=== PATIENT | male | born 1955 | race Caucasian/White ===

== ENCOUNTER 2019-09-05 08:27 | Emergency (ER) | payer BC, SELFPAY ==
--- NOTE | 2019-09-05 08:28 | XRR_ITS ---
PROCEDURE INFORMATION: Exam: XR Abdomen, 2 Views Exam date and time: 09/05/2019 8:30 AM Age: 64 years old Clinical indication: Patient status: Conscious; Pain: Left flank pain. Urinary retention; Prior surgery; Surgery date: 6+ months; Surgery type: Appy; Patient HX: HX of kidney stones; Additional info: Renal stone TECHNIQUE: Imaging protocol: XR of the abdomen. Views: 2 Views. COMPARISON: No relevant prior studies available. FINDINGS: Gastrointestinal tract: Bowel gas pattern is nonspecific. No mass effect upon the bowel loops. Distal rectal gas. Scattered loops of air filled small bowel none of which are dilated. Intraperitoneal space: Normal. No free air. Bones/joints: No acute process within the osseous structures of the spine or pelvis. Prior hip arthroplasty on the right Soft tissues: No appreciable calcifications XR/XR KUB [id number] IMPRESSION: Bowel gas pattern is nonspecific.
[2019-09-05 08:32] VITALS: BP 177/98; PULSE 69; RESP 18; TEMP 36.2; O2SAT 98; BMI 28.3
--- NOTE | 2019-09-05 08:33 | ED_ITS ---
Documented by User: Humberto Raines DO 09/05/19 16:01 HPI - Abdominal Pain General: Chief Complaint: Urogenital-Male Stated Complaint: poss kidney stone Time Seen by Provider: 09/05/19 08:28 History of Present Illness: HPI narrative: 64-year-old male presents emergency room with unable to void. He is not had any hematuria recently. He is not had any flank pain. Around 11 PM last night he was able to void a moderate amount he woke up again at 2 AM states he voided a very small amount at that point and since 3 AM he is not been able to void at all he has increasing suprapubic pain mostly at the midline. He has had kidney stones in the past he is not behaving is a typical nephrolithiasis patient does at this point in terms of pain. MD elicited complaint: abdominal pain Pertinent past history: kidney stones Onset (ago): hour(s) (6) Pain Consistency: constant Location: Suprapubic and Pelvis Severity: moderate Quality: cramping Radiation: bilateral flank (Mild) and back Migration to: periumbilical Exacerbating factors: movement and other (Patient over the bladder) Relieving factors: rest Context: other (History of BPH) Associated Symptoms: Reports GI cramping; Denies chills, fever(s), hematochezia and hematuria Treatments prior to arrival: other (Tamsulosin ) Review of Systems Const: Denies: fever(s), chills, body aches, change in appetite, fatigue or malaise ENMT: Denies: throat pain, ear or mastoid pain, nasal discharge or nasal congestion Card: Denies: chest pain, edema, dyspnea on exertion or orthopnea Resp: Denies: dyspnea, productive cough or non-productive cough GI: Reports: GI cramping; Denies: hematochezia : Denies: hematuria Skin/Breast: Denies: rash or pruritus PFSH ED PFSH: Medical History (Updated 09/05/19 @ 11:47 by Rupinder Hwang) BPH (benign prostatic hyperplasia) Hypertension Nephrolithiasis Surgical History (Updated 09/05/19 @ 08:44 by Humberto Raines DO) History of appendectomy History of total right hip arthroplasty Physical Exam Const: COMMON NORMALS: no acute distress GENERAL APPEARANCE: cooperative and comfortable ORIENTATION/CONSCIOUSNESS: Yes awake, Yes oriented to person, Yes oriented to place and Yes oriented to time HENMT: COMMON NORMALS: normocephalic, atraumatic, hearing grossly normal bilaterally, external ears normal, EAC's normal, TM's normal bilaterally, Normal nasal mucous membranes and turbinates present, moist oral mucous membranes and oropharynx normal HEAD & SCALP: normocephalic and atraumatic NOSE: Normal nasal mucous membranes and turbinates present EXTERNAL EAR: Yes external ears normal EXTERNAL AUDITORY CANAL: EAC's normal TYMPANIC MEMBRANE: TM's normal bilaterally Eye: COMMON NORMALS: Equal, round and reactive pupils present, EOMs intact bilaterally, conjunctivae normal and no scleral icterus CONJUNCTIVA: Yes conjunctivae normal PUPIL: Yes Equal, round and reactive pupils present Neck/C-Spine: COMMON NORMALS: full ROM, no lymphadenopathy, supple and no JVD Lymph: LYMPHATIC: no lymphadenopathy noted and no lymphedema noted Resp: COMMON NORMALS: normal respiratory effort, No retractions, No use of accessory muscles and clear to auscultation bilaterally AUSCULTATION: clear to auscultation bilaterally Cardio: COMMON NORMALS: no JVD, regular rate, regular rhythm and No murmurs present (Cardio) RATE: regular rate RHYTHM: regular rhythm GI: COMMON NORMALS: Soft to palpation and No hepatosplenomegaly present AUSCULTATION: Yes normoactive bowel sounds PALPATION: Yes Soft to palpation, No Tenderness to palpation present (GI), No Guarding due to palpation present (GI), Yes No hepatosplenomegaly present and Yes Bladder palpation abnormal : COMMON NORMALS: Yes no CVA tenderness BLADDER/KIDNEY EXAM: Yes no CVA tenderness and Yes Bladder palpation abnormal Bladder abnormal details: tender and distended to the umbilicus Back/Pelvis: COMMON NORMALS: no CVA tenderness Extremity: COMMON NORMALS: normal to inspection, capillary refill normal, no clubbing, cyanosis or edema, no calf tenderness and no pedal edema Neuro: SENSORIUM/ORIENTATION: Yes oriented to person, Yes oriented to place and Yes oriented to time Skin: COMMON NORMALS: no rashes or lesions noted GENERAL SKIN EXAM: no rashes or lesions noted Course Vital Signs: Vital signs: Vital Signs Temperature 97.1 F L 09/05/19 08:32 Pulse Rate 70 09/05/19 12:04 Respiratory Rate 15 09/05/19 12:04 Blood Pressure 128/88 09/05/19 12:04 Pulse Oximetry 99 09/05/19 12:04 MDM - Abdominal Pain MDM Narrative: Medical decision making narrative: Care turned over to Dr. Hwang at change of shift. Please see his notes for final diagnosis and disposition. Lab Data: Labs: Lab Results 09/05/19 09/05/19 Range/Units 09:00 09:00 WBC 9.3 (4.0-10.0) 10^3/ uL RBC 5.51 H (4.1-5.3) 10^6/u L Hgb 15.5 (11.7-16.6) g/dL Hct 48.5 (42.0-52.0) % MCV 88.0 (80-94) fL MCH 28.1 (28.0-34.0) pg MCHC 32.0 (30.0-36.0) g/dL RDW 13.1 (12.1-15.1) % Plt Count 145 (130-400) 10^3/c mm MPV 13.0 H (7.4-10.4) fL Neut % (Auto) 83.8 % Lymph % (Auto) 9.5 % [place] % (Auto) 5.4 % Eos % (Auto) 0.1 % Baso % (Auto) 0.2 % Neut # (Auto) 7.8 H (1.8-7.7) 10^3/u L Lymph # (Auto) 0.9 (0.8-4.8) 10^3/u L [place] # (Auto) 0.5 (0.2-0.9) 10^3/u L Eos # (Auto) 0.0 (0.0-0.8) 10^3/u L Baso # (Auto) 0.0 (0.0-0.1) 10^3/u L Nucleated RBC % (a uto) 0 % Nucleated RBCs # 0.0 /100WBC Sodium 138 (136-145) mmol/L Potassium 4.0 (3.5-5.1) mmol/L Chloride 101 (98-107) mmol/L Carbon Dioxide 26 (22-29) mmol/L Anion Gap 15.0 (5-19) BUN 18 (8-23) mg/dL Creatinine 0.9 (0.7-1.2) mg/dL GFR Calculation 85.5 L (90-130) mL/min Glucose 129 H (65-115) mg/dL Calculated Osmolal ity 284 L (285-295) mOsm/k g Calcium 10.0 (8.5-10.5) mg/dL Total Bilirubin 0.4 (0.15-1.2) mg/dL AST 17 (0-40) U/L ALT 23 (0-41) U/L Alkaline Phosphata se 115 (40-130) IU/L Total Protein 7.9 (6.6-8.7) g/dL Albumin 4.9 (3.5-5.2) g/dL Globulin 3.0 (1.3-4.6) g/dL Discharge Plan Discharge Patient Disposition: Home, Self-Care Clinical Impression: Acute retention of urine Prostatitis Qualifiers: Prostatitis type: other Qualified Code(s): N41.8 - Other inflammatory diseases of prostate Condition: Stable Prescriptions: New Cipro 500 mg tablet 500 mg PO BID Qty: 20 RF: 0 No Action tamsulosin 0.4 mg capsule 0.4 mg PO DAILY RF: 0 lisinopril-hydrochlorothiazide 20-25 mg tablet 1 tab PO DAILY RF: 0 aspirin 81 mg Tablet,Chewable 81 mg PO DAILY RF: 0 Discharge Orders: Discharge Order (Routine); Ordered 09/05/19 Ordered By: Rupinder Hwang Referrals: Noe Chase MD [Physician] - 1-3 days Discharge Diet: Advance as tolerated Discharge Activity: Limit activity as instructed Patient Instructions: Prostatitis (ED), Urinary Retention in Men (ED) Activity Restrictions/Additional Instructions: Please return to the ER immediately for any of the signs or symptoms listed on your discharge instruction sheets, worsening/changing of your symptoms, you are not getting better as quickly as expected, or for ANY other cause or concerns. Keep your catheter in place until instructed further by Dr. Chase. Take your antibiotics as I have prescribed. Return to the ER for increased pain, your catheter stops draining, fever, vomiting, or for any other cause for concern. Discharge Date/Time: 09/05/19 12:07 Sign Out Sign Out Data: Patient Sign Out occurred on 09/05/19 at 09:14. Patient's care was discussed, and care was transferred from to Rupinder Hwang. Coding Level of Care Code ED Water Supply Engineer for Chg Fwd Exam Comprehensive Documented by User: Rupinder Hwang 09/05/19 11:48 HPI - Abdominal Pain General: Chief Complaint: Urogenital-Male Stated Complaint: poss kidney stone Time Seen by Provider: 09/05/19 08:28 PFSH ED PFSH: Medical History (Updated 09/05/19 @ 11:47 by Rupinder Hwang) BPH (benign prostatic hyperplasia) Hypertension Nephrolithiasis Surgical History (Updated 09/05/19 @ 08:44 by Humberto Raines, ) History of appendectomy History of total right hip arthroplasty Course Vital Signs: Vital signs: Vital Signs Temperature 97.1 F L 09/05/19 08:32 Pulse Rate 70 09/05/19 12:04 Respiratory Rate 15 09/05/19 12:04 Blood Pressure 128/88 09/05/19 12:04 Pulse Oximetry 99 09/05/19 12:04 MDM - Abdominal Pain MDM Narrative: Medical decision making narrative: Case inherited by me, Dr. Hwang from Dr. Raines at change of shift. Please see his notes for his history, physical exam and medical decision-making notes. KUB was unrevealing. CT of abdomen pelvis reveals no evidence of stones but bilateral hydroureters. Causes likely secondary to bladder outlet obstruction. Brito catheter was placed and 1300 cc of yellow-colored urine was obtained. Patient had almost immediate relief of all his discomfort. Patient be discharged home with a leg bag, placed on antibiotics for presumed prostatitis and he will continue his Flomax. Patient be referred to Dr. Chase and he understands he needs to do this and use the catheter until then. I reviewed with him at length the reasons for which to turn to the ER and he agrees to do so. He denied having any question or concerns and stated he understood all my discharge instructions. Lab Data: Attestation: I reviewed the patient's lab results. Labs: Lab Results 09/05/19 09/05/19 Range/Units 09:00 09:00 WBC 9.3 (4.0-10.0) 10^3/ uL RBC 5.51 H (4.1-5.3) 10^6/u L Hgb 15.5 (11.7-16.6) g/dL Hct 48.5 (42.0-52.0) % MCV 88.0 (80-94) fL MCH 28.1 (28.0-34.0) pg MCHC 32.0 (30.0-36.0) g/dL RDW 13.1 (12.1-15.1) % Plt Count 145 (130-400) 10^3/c mm MPV 13.0 H (7.4-10.4) fL Neut % (Auto) 83.8 % Lymph % (Auto) 9.5 % [place] % (Auto) 5.4 % Eos % (Auto) 0.1 % Baso % (Auto) 0.2 % Neut # (Auto) 7.8 H (1.8-7.7) 10^3/u L Lymph # (Auto) 0.9 (0.8-4.8) 10^3/u L [place] # (Auto) 0.5 (0.2-0.9) 10^3/u L Eos # (Auto) 0.0 (0.0-0.8) 10^3/u L Baso # (Auto) 0.0 (0.0-0.1) 10^3/u L Nucleated RBC % (a uto) 0 % Nucleated RBCs # 0.0 /100WBC Sodium 138 (136-145) mmol/L Potassium 4.0 (3.5-5.1) mmol/L Chloride 101 (98-107) mmol/L Carbon Dioxide 26 (22-29) mmol/L Anion Gap 15.0 (5-19) BUN 18 (8-23) mg/dL Creatinine 0.9 (0.7-1.2) mg/dL GFR Calculation 85.5 L (90-130) mL/min Glucose 129 H (65-115) mg/dL Calculated Osmolal ity 284 L (285-295) mOsm/k g Calcium 10.0 (8.5-10.5) mg/dL Total Bilirubin 0.4 (0.15-1.2) mg/dL AST 17 (0-40) U/L ALT 23 (0-41) U/L Alkaline Phosphata se 115 (40-130) IU/L Total Protein 7.9 (6.6-8.7) g/dL Albumin 4.9 (3.5-5.2) g/dL Globulin 3.0 (1.3-4.6) g/dL Imaging Data ^: CT Abd/Pel: Radiologist's impression: [address] [address] [address] Scan Report Signed Patient: Aries Ramos Unit #: [id number] : 1955 39 Age/Sex: 64 / M ADM Date: 09/05/19 Loc: ER Room/Bed: Attending Dr: Ordering Provider/Ordering MD: Rupinder Hwang DO Date of Service: 09/05/19 Procedure(s): CT kidney stone [id number] Accession Number(s): [id number] Report Number: [id number] PROCEDURE INFORMATION: Exam: CT Abdomen And Pelvis Without Contrast Exam date and time: 09/05/2019 9:43 AM Age: 64 years old Clinical indication: Abdominal pain; Flank; Left; Prior surgery; Surgery type: Appy; Additional info: Flank/abdominal pain TECHNIQUE: Imaging protocol: Computed tomography of the abdomen and pelvis without contrast. Radiation optimization: All CT scans at this facility use at least one of these dose optimization techniques: automated exposure control; mA and/or kV adjustment per patient size (includes targeted exams where dose is matched to clinical indication); or iterative reconstruction. COMPARISON: CR (ABDOMEN, ) 09/05/2019 9:25 AM RADIATION DOSE METRICS: Total DLP (mGy-cm): 1859.4 FINDINGS: Lungs: Mild fibrotic changes within the lung bases. Liver: Normal. No mass. Gallbladder and bile ducts: Numerous gallstones. Pancreas: Normal. No ductal dilation. Spleen: Normal. No splenomegaly. Adrenals: Normal. No mass. Kidneys and ureters: Hydronephrosis and hydroureter on the left to the level of the urinary bladder. No visualized calculus. Correlate regarding the possibility of a recently passed calculus. Mild hydronephrosis on the right also without a visualized calculus although to a lesser degree than the left. Possibly related to the distended bladder and severe prostatic enlargement. Stomach and bowel: Diverticulosis without evidence of diverticulitis. Moderate amount stool within the large bowel. Appendix: The appendix is not visualized. Intraperitoneal space: Unremarkable. No free air. No significant fluid collection. Vasculature: Unremarkable. No abdominal aortic aneurysm. Lymph nodes: Numerous lymph nodes within the mesentery with a pseudocapsule. Possible sclerosing mesenteritis. Bladder: Distended bladder. Reproductive: Severe prostatic enlargement. Correlate regarding hyperplasia/hypertrophy versus neoplasia. Bones/joints: Degenerative changes are present within the spine. Hip arthroplasty on the right. Soft tissues: Unremarkable. CT/CT kidney stone [id number] IMPRESSION: 1. Hydronephrosis and hydroureter on the left to the level of the urinary bladder. No visualized calculus. Correlate regarding the possibility of a recently passed calculus. Mild hydronephrosis on the right also without a visualized calculus although to a lesser degree than the left. Possibly related to the distended bladder and severe prostatic enlargement. Correlate. 2. Distended bladder. 3. Severe prostatic enlargement. Correlate regarding hyperplasia/hypertrophy versus neoplasia. Impression. 4. Numerous gallstones. 5. Hip arthroplasty on the right. 6. Diverticulosis without evidence of diverticulitis. Radiation Dose CTDIVOL = (mGy): DLP = 1859.4 (mGy-cm) Dictated By: Franklin Baker MD Signed By: Franklin Baker MD Signed Date/Time: 09/05/19 105 DD/ 1050 Discharge Plan Discharge Patient Disposition: Home, Self-Care Clinical Impression: Acute retention of urine Prostatitis Qualifiers: Prostatitis type: other Qualified Code(s): N41.8 - Other inflammatory diseases of prostate Condition: Stable Prescriptions: New Cipro 500 mg tablet 500 mg PO BID Qty: 20 RF: 0 No Action tamsulosin 0.4 mg capsule 0.4 mg PO DAILY RF: 0 lisinopril-hydrochlorothiazide 20-25 mg tablet 1 tab PO DAILY RF: 0 aspirin 81 mg Tablet,Chewable 81 mg PO DAILY RF: 0 Discharge Orders: Discharge Order (Routine); Ordered 09/05/19 Ordered By: Rupinder Hwang Referrals: Noe Chase MD [Physician] - 1-3 days Discharge Diet: Advance as tolerated Discharge Activity: Limit activity as instructed Patient Instructions: Prostatitis (ED), Urinary Retention in Men (ED) Activity Restrictions/Additional Instructions: Please return to the ER immediately for any of the signs or symptoms listed on y our discharge instruction sheets, worsening/changing of your symptoms, you are not getting better as quickly as expected, or for ANY other cause or concerns. Keep your catheter in place until instructed further by Dr. Chase. Take your antibiotics as I have prescribed. Return to the ER for increased pain, your catheter stops draining, fever, vomiting, or for any other cause for concern. Discharge Date/Time: 09/05/19 12:07 Sign Out Sign Out Data: Patient Sign Out occurred on 09/05/19 at 09:14. Patient's care was discussed, and care was transferred from to Rupinder Hwang. Coding Level of Care Code ED Water Supply Engineer for Maite Fwd Exam Comprehensive
[2019-09-05 08:39] VITALS: O2SAT 99
[2019-09-05] MEDS: sodium chloride 0.9% 1,000 ML 999 ML IV (09:02)
[2019-09-05] MEDS: morphine 4 mg/mL SDV 1 mL 6 MG IVP (09:02)
[2019-09-05] MEDS: ondansetron 2 mg/ML SDV 2 mL 4 MG IVP (09:02)
--- NOTE | 2019-09-05 09:32 | PC.NURSE ---
pt back from CT by lizbet
--- NOTE | 2019-09-05 09:38 | CTR_ITS ---
PROCEDURE INFORMATION: Exam: CT Abdomen And Pelvis Without Contrast Exam date and time: 09/05/2019 9:43 AM Age: 64 years old Clinical indication: Abdominal pain; Flank; Left; Prior surgery; Surgery type: Appy; Additional info: Flank/abdominal pain TECHNIQUE: Imaging protocol: Computed tomography of the abdomen and pelvis without contrast. Radiation optimization: All CT scans at this facility use at least one of these dose optimization techniques: automated exposure control; mA and/or kV adjustment per patient size (includes targeted exams where dose is matched to clinical indication); or iterative reconstruction. COMPARISON: CR (ABDOMEN, ) 09/05/2019 9:25 AM RADIATION DOSE METRICS: Total DLP (mGy-cm): 1859.4 FINDINGS: Lungs: Mild fibrotic changes within the lung bases. Liver: Normal. No mass. Gallbladder and bile ducts: Numerous gallstones. Pancreas: Normal. No ductal dilation. Spleen: Normal. No splenomegaly. Adrenals: Normal. No mass. Kidneys and ureters: Hydronephrosis and hydroureter on the left to the level of the urinary bladder. No visualized calculus. Correlate regarding the possibility of a recently passed calculus. Mild hydronephrosis on the right also without a visualized calculus although to a lesser degree than the left. Possibly related to the distended bladder and severe prostatic enlargement. Stomach and bowel: Diverticulosis without evidence of diverticulitis. Moderate amount stool within the large bowel. Appendix: The appendix is not visualized. Intraperitoneal space: Unremarkable. No free air. No significant fluid collection. Vasculature: Unremarkable. No abdominal aortic aneurysm. Lymph nodes: Numerous lymph nodes within the mesentery with a pseudocapsule. Possible sclerosing mesenteritis. Bladder: Distended bladder. Reproductive: Severe prostatic enlargement. Correlate regarding hyperplasia/hypertrophy versus neoplasia. Bones/joints: Degenerative changes are present within the spine. Hip arthroplasty on the right. Soft tissues: Unremarkable. CT/CT kidney stone [id number] IMPRESSION: 1. Hydronephrosis and hydroureter on the left to the level of the urinary bladder. No visualized calculus. Correlate regarding the possibility of a recently passed calculus. Mild hydronephrosis on the right also without a visualized calculus although to a lesser degree than the left. Possibly related to the distended bladder and severe prostatic enlargement. Correlate. 2. Distended bladder. 3. Severe prostatic enlargement. Correlate regarding hyperplasia/hypertrophy versus neoplasia. Impression. 4. Numerous gallstones. 5. Hip arthroplasty on the right. 6. Diverticulosis without evidence of diverticulitis. Radiation Dose CTDIVOL = (mGy): DLP = 1859.4 (mGy-cm)
[2019-09-05 09:42] LABS: Basophils % 0.2 %; Eosinophils % 0.1 %; Hematocrit 48.5 % (42.0-52.0); Hemoglobin 15.5 g/dL (11.7-16.6); Lymphocytes # 0.9 10^3/uL (0.8-4.8); Lymphocytes % 9.5 %; Mean Corpuscular Hemoglobin 28.1 pg (28.0-34.0); Monocytes # 0.5 10^3/uL (0.2-0.9); Monocytes % 5.4 %; Neutrophils # 7.8 10^3/uL (1.8-7.7); Neutrophils % 83.8 %; Nucleated Red Blood Cells % 0 %; Platelet Count 145 10^3/cmm (130-400); Red Blood Count 5.51 10^6/uL (4.1-5.3); Red Cell Distribution Width 13.1 % (12.1-15.1); White Blood Count 9.3 10^3/uL (4.0-10.0)
[2019-09-05 09:58] LABS: Alanine Aminotransferase 23 U/L (0-41); Albumin Level 4.9 g/dL (3.5-5.2); Alkaline Phosphatase 115 IU/L (40-130); Aspartate Amino Transferase 17 U/L (0-40); Blood Urea Nitrogen 18 mg/dL (8-23); Carbon Dioxide 26 mmol/L (22-29); Chloride 101 mmol/L (98-107); Glomerular Filtration Rate 85.5 mL/min (90-130); Glucose 129 mg/dL (65-115); Osmolality Calculated 284 mOsm/kg (285-295); Sodium 138 mmol/L (136-145); Total Bilirubin 0.4 mg/dL (0.15-1.2); Total Protein 7.9 g/dL (6.6-8.7)
[2019-09-05 12:04] VITALS: BP 128/88; PULSE 70; RESP 15; O2SAT 99
--- NOTE | 2019-09-05 12:06 | PC.NURSE ---
1300 mL urine output with gates
--- NOTE | 2019-09-07 14:55 | DCPLANNER ---
pricing manager had message to schedule a follow up appointment for patient with Dr. Chase. pricing manager called the office of Dr. Chase, spoke with Emilee, gave clinic patients information. pricing manager was told that patients information would be printed and reviewed. Clinic will call patient with appointment information.
--- NOTE | 2019-09-09 08:43 | DCPLANNER ---
Patient had a follow up appointment scheduled for 09.07.[address] Chase. Patient did attend the appointment.
== END 2019-09-05 12:07 | disposition home or self-care (01) ==
PROVIDERS: Family Medicine; Emergency Provider Emergency Medicine
DX: R33.9 Retention of urine, unspecified (principal); N41.8 Other inflammatory diseases of prostate; I10 Essential (primary) hypertension
CPT/HCPCS: 12345; 51702; 51798; 74018; 74176; 80053; 85025; 96361; 96374; 96375; 99283; J2270; J2405; J7030

== ENCOUNTER → 2019-09-21 13:02 | Outpatient (BNVA) | payer BC, SELFPAY | PROVIDERS: PCP Nurse Practitioner Family; Visit Provider Urology | DX: N40.1 Benign prostatic hyperplasia with lower urinary tract symptoms (principal); F17.290 Nicotine dependence, other tobacco product, uncomplicated | CPT/HCPCS: 81001 ==

== ENCOUNTER 2025-01-12 04:53 | Emergency (ER) | payer MEDICARE, SELFPAY ==
[2025-01-12 04:57] VITALS: BP 138/84; PULSE 78; RESP 20; TEMP 36.4; O2SAT 98; BMI 30.3
[2025-01-12 05:03] VITALS: BP 138/84; PULSE 71; O2SAT 97
--- OUTSIDE RECORDS SUMMARY | 2025-01-12 05:05 | XMS_ITS | Encounter Summary ---
Author Organization [facility] Address [address] [place] [address] Care Team Providers Care Valver Name Role Phone Zarina Honeycutt Primary Care Provider Encounter Details Date Type Department Care Team (Latest Contact Info) Description 01/03/2005 Outpatient [facility] [place] [address] [facility] [address] [place] [phone] Niru Coy MD NO ADDRESS ON FILE TICK-BORNE FEVER (Primary Dx) Social History Tobacco Use Types Packs/Day Years Used Date Smoking Tobacco: Never Assessed Sex and Gender Information Value Date Recorded Sex Assigned at Not on file Legal Sex Male 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
--- OUTSIDE RECORDS SUMMARY | 2025-01-12 05:05 | XMS_ITS | Encounter Summary ---
Author Organization [facility] Address [address] [place] [address] Care Team Providers Care Chief Engineer'S Helper Name Role Phone Zarina Honeycutt Primary Care Provider Encounter Details Date Type Department Care Team ([facility] st Contact Info) Description 09/24/2019 Ancillary Orders [facility] Centralized Scheduling [address] [address] Zarina Honeycutt FNP [address] [facility] [address] [place] [address] Social History Tobacco Use Types Packs/Day Years Used Date Smoking Tobacco: Never Smokeless Tobacco: Current Chew Alcohol Use Standard Drinks/Week Comments No 0 (1 standard drink = 0.6 oz pur e alcohol) Sex and Gender Information Value Date Recorded Sex Assigned at Not on file Legal Sex Male 4:19 AM RN ENDOCRINOLOGY Gender Identity Not on file Sexual Orientation Not on file COVID-19 Exposure Response Date Recorded In the last month, have you been in contact with someone who was confirmed or suspected to have Coronavirus / COVID-19? No / Unsure 09/24/2019 12:55 PM CDT documented as of this encounter Plan of Treatment Not on file documented as of this encounter Visit Diagnoses Not on filedocumented in this encounter Care Teams Chief Engineer'S Helper Relationship Specialty Start Date End Date Zarina Honeycutt FNP [address] [place] [phone] PCP - General Nurse Practitioner Family 09/24/19 documented as of this encounter
--- OUTSIDE RECORDS SUMMARY | 2025-01-12 05:05 | XMS_ITS | Encounter Summary ---
Author Organization [facility] Address [address] [place] [address] Care Team Providers Care Forklift Technician Name Role Phone Zarina Honeycutt Primary Care Provider Encounter Details Date Type Department Care Team ([facility] Contact Info) Description 09/27/2019 Ancillary Orders [facility] Centralized Scheduling [address] [address] Zarina Honeycutt FNP [address] [facility] [address] [place] [address] Social History Tobacco Use Types Packs/Day Years Used Date Smoking Tobacco: Never Smokeless Tobacco: Current Chew Alcohol Use Standard Drinks/Week Comments No 0 (1 standard drink = 0.6 oz pur e alcohol) Sex and Gender Information Value Date Recorded Sex Assigned at Not on file Legal Sex Male 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
--- OUTSIDE RECORDS SUMMARY | 2025-01-12 05:05 | XMS_ITS | Encounter Summary ---
Author Organization [facility] Address [address] [place] [address] Care Team Providers Care Fish House Worker Name Role Phone Zarina Honeycutt Primary Care Provider [phone] Encounter Details Date Type Department Care Team ([facility] Contact Info) Description 09/29/2019 Ancillary Orders [facility] Centralized Scheduling [address] [facility] [address] [place] [address] Zarina Honeycutt FNP [address] [facility] [address] [place] [address] Pain in left leg Social History Tobacco Use Types Packs/Day Years Used Date Smoking Tobacco: Never Smokeless Tobacco: Current Chew Alcohol Use Standard Drinks/Week Comments No 0 (1 standard drink = 0.6 oz pur e alcohol) Sex and Gender Information Value Date Recorded Sex Assigned at Not on file Legal Sex Male 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 No / Unsure 09/24/2019 12:55 PM CDT documented as of this encounter Plan of Treatment Not on file documented as of this encounter Visit Diagnoses Diagnosis Pain in left leg documented in this encounter Care Teams Fish House Worker Relationship Specialty Start Date End Date Zarina Honeycutt FNP [address] [place] [phone] PCP - General Nurse Practitioner Family 09/24/19 documented as of this encounter
--- OUTSIDE RECORDS SUMMARY | 2025-01-12 05:05 | XMS_ITS | Clinical Summary ---
Author Organization [facility] Address [address] Simsn: Epic Prelude ADT ERIBERTO SHEPARD [address] Care Team Providers Care Fan Mail Clerk Name Role Phone Fortino Orellana MD Primary Care Provider [phone] Allergies No known active allergies Medications aspirin (ECOTRIN EC) 81 mg Tablet, Delayed Release (E.C.) Take 81 mg by mouth daily. Active tamsulosin (FLOMAX) 0.4 mg capsuleIndication s:Benign prostatic hyperplasia, unspecified whether lower urinary tract symptoms present Take 1 Capsule (0.4 mg) by mouth 2 times daily. 200 Capsule 3 5 Active lisinopriL (PRINIVIL) 10 mg tabletIndications :Benign hypertension Take 1 Tablet (10 mg) by mouth daily. Hold BP<110/60 100 Tablet 3 5 Active Active Problems Problem Noted Date Diagnosed Date Benign hypertension 11/01/2021 Benign prostatic hyperplasia 11/01/2021 Encounters Date Type Department Care Team Description 12/22/2024 External Device Data STL ABSTRACTION Provider, Abstract 11/02/2024 Results Follow-Up [facility] [address] [facility] [address] [place] [phone] Fortino Orellana MD PSA, LIPID PANEL, COMPREHENSIVE METABOLIC PANEL, Additional followed-up results: 3 10/27/2024 12:20 PM CDT Office Visit [facility] [address] [place] [address] Fortino Orellana MD Medicare annual wellness visit, subsequent (Primary Dx); Benign prostatic hyperplasia, unspecified whether lower urinary tract symptoms present; Benign hypertension from Last 3 Months Social History Tobacco Use Types Packs/Day Years Used Date Smoking Tobacco: Never Smokeless Tobacco: Current Tobacco Cessation:Ready to Q uit: No; Counseling Given: No Alcohol Use Standard Drinks/Week Comments No 0 (1 standard drink = 0.6 oz pur e alcohol) Sex and Gender Information Value Date Recorded Sex Assigned at Not on file Legal Sex Male 12:32 AM DRUPAL ARCHITECT Gender Identity Not on file Sexual Orientation Not on file Last Filed Vital Signs Vital Sign Reading Time Taken Comments Blood Pressure 130/80 10/27/2024 12:27 PM CDT Pulse 82 10/27/2024 12:27 PM CDT Temperature 36.3 C (97.4 F) 10/27/2024 12:27 PM CDT Respiratory Rate 18 10/27/2024 12:27 PM CDT Oxygen Saturation 97% 10/27/2024 12:27 PM CDT Inhaled Oxygen Concentration - - Weight 105.7 kg (233 lb) 10/27/2024 12:27 PM CDT Height 185.4 cm (6' 1 ) 10/27/2024 12:27 PM CDT Body Mass Index 30.74 10/27/2024 12:27 PM CDT Plan of Treatment Upcoming Encounters Date Type Department Care Team (Late st Contact Info) Description 10/28/2025 8:00 AM CDT Office Visit [address] [phone] Fortino Orellana MD [address] [phone] Health Maintenance Due Date Last Done Comments Pre-Diabetes and Diabetes Screening 1955 FIT/FOBT Q 1 YEAR (AUTO ORDER) 08/13/1975 DTAP/TDAP/TD VACCINES (1 - Tdap) 1976 COLORECTAL CANCER SCREENING (AUTO ORDER) 2002 COLORECTAL SCREENING 2002 FIT/FOBT Q 1 year 2002 Flex Sig/CT Colonography Q 5 years 2002 PNEUMOCOCCAL VACCINE 50+ YEA RS (1 of 1 - PCV) 08/13/2007 ZOSTER VACCINE (1 of 2) 08/13/2007 INFLUENZA VACCINE (#1) 2024 COVID-19 Vaccine (3 - season) 2024, 11/13/2020 Traditional Medicare (ACO) A nnual Wellness Visit 10/28/2025 10/27/2024, 10/15/2023 Colorectal Cancer Screening 12/18/2025 FIT-DNA Q 3 years 12/18/2025 12/18/2022 FIT/ DNA Q 3 YEARS (AUTO ORDER) 12/18/2025 , 12/18/2022 Colorectal Cancer Screening (AUTO ORDER) 12/19/2027 FLEX SIG/CT COLONOGRAPHY Q 5 YEARS (AUTO ORDER) 12/19/2027 12/18/2022, 12/18/2022 RSV VACCINE (60+ or ) (1 - 1-dose 75+ series) 2032 Procedures Procedure Name Priority Date/Time Associated Diagnosis Comments URINALYSIS W/REFLEX MICROSCOPIC Routine 10/27/2024 12:53 PM CDT Benign hypertension CBC WITH DIFFERENTIAL Routine 10/27/2024 12:53 PM CDT Benign hypertension COMPREHENSIVE METABOLIC PANEL Routine 10/27/2024 12:53 PM CDT Benign hypertension LIPID PANEL Routine 10/27/2024 12:53 PM CDT Benign hypertension PSA Routine 10/27/2024 12:53 PM CDT Benign prostatic hyperplasia, unspecified whether lower urinary tract symptoms present URINE CULTURE Routine 10/27/2024 12:53 PM CDT COLON CANCER SCREEN, STOOL DNA Routine 12/18/2022 12:45 PM CDT Colon cancer screening from Last 3 Months or Most Recently Relevant to Health Maintenance Results * (ABNORMAL) CBC WITH DIFFERENTIAL (10/27/2024 12:53 PM CDT) WBC 7.1 3.8 - 10.8 Thousand/u L [facility] RBC 5.19 4.20 - 5.80 Million/uL [facility] HEMOGLOBIN 14.9 13.2 - 17.1 g/dL [facility] HEMATOCRIT 46.1 38.5 - 50.0 % [facility] MCV 88.8 80.0 - 100.0 fL [facility] MCH 28.7 27.0 - 33.0 pg [facility] MCHC 32.3 32.0 - 36.0 g/dL [facility] Comment: For adults, a slight decrease in the calculated MCHC value (in the range of 30 to 32 g/dL) is most likely not clinically significant; however, it should be interpreted with caution in correlation with other red cell parameters and the patient's clinical condition. RDW 13.0 11.0 - 15.0 % [facility] PLATELETS 130(L) 140 - 400 Thousand/u L [facility] MPV 12.6(H) 7.5 - 12.5 fL [facility] NEUTROPHIL ABSOLUTE 4,778 1,500 - 7,800 cells/uL [facility] LYMPHOCYTE ABSOLUTE 1,669 850 - 3,900 cells/uL [facility] MONOCYTE ABSOLUTE 604 200 - 950 cells/uL [facility] EOSINOPHIL ABSOLUTE 28 15 - 500 cells/uL [facility] BASOPHILS ABSOLUTE 21 0 - 200 cells/uL [facility] NEUTROPHIL 67.3 % [facility] LYMPHOCYTES 23.5 % [facility] MONOCYTE 8.5 % [facility] EOSINOPHILS 0.4 % [facility] BASOPHILS 0.3 % [facility] Comment: Test Performed at: [facility] [address] [place] [address] Hardeep Valles MD Blood 10/27/2024 12:5 3 PM CDT 10/28/2024 3:45 AM CDT Fortino Orellana MD HEMATOLOGY ORDERABLES Fin al Result Performing Organization Address [facility] Co de Phone Number [facility] [phone] [facility] [address] * URINALYSIS WITH REFLEX MICROSCOPIC (10/27/2024 12:53 PM CDT) COLOR UA YELLOW YELLOW [facility] CLARITY UA CLEAR CLEAR [facility] SPECIFIC GRAVITY UA 1.008 1.001 - 1.035 [facility] PH UA 7.0 5.0 - 8.0 [facility] GLUCOSE UA NEGATIVE NEGATIVE [facility] BILIRUBIN UA NEGATIVE NEGATIVE [facility] KETONES UA NEGATIVE NEGATIVE [facility] BLOOD UA NEGATIVE NEGATIVE [facility] PROTEIN UA NEGATIVE NEGATIVE [facility] NITRITE UA NEGATIVE NEGATIVE [facility] LEUKOCYTE ESTERASE UA NEGATIVE NEGATIVE [facility] Comment: Test Performed at: [facility] [address] [place] [address] Hardeep Valles MD Urine URINE SPECIMEN OBTAINED BY CLEAN CATCH PROCEDURE / Unknown 10/27/2024 12:53 PM CDT 10/28/2024 3:10 AM CDT Fortino Orellana MD URINE ORDERABLES Final Re sult Performing Organization Address [facility] Co de Phone Number [facility] [phone] [facility] [address] * URINE CULTURE (10/27/2024 12:53 PM CDT) URINE CULTURE SEE NOTE [facility] Comment: CULTURE, URINE, ROUTINE Micro Number: [id number] Test Status: Final Specimen Source: Urine Specimen Quality: Adequate Result: No Growth We received a preserved urine culture transport tube with either no order indicated or a source which is inappropriate for the test requested. A urine culture was performed. If this is not what you intended to order, please contact your local client services representative immediately so that we can adjust our billing appropriately. You may also inquire about alternative or additional testing. Test Performed at: [facility] [address] [place] [address] Hardeep Valles MD 10/27/2024 12:5 3 PM CDT 10/28/2024 3:10 AM CDT Fortino Orellana MD MICROBIOLOGY - GENERAL OR DERABLES Final Result Performing Organization Address [facility]/ZIP Co de Phone Number [facility] [phone] [facility] [place] [address] * PSA (10/27/2024 12:53 PM CDT) PSA 2.96 < OR = 4.00 ng/mL [facility] Comment: The total PSA value from this assay system is standardized against the WHO standard. The test result will be approximately 20% lower when compared to the equimolar-standardized total PSA (Caleb Vesna). Comparison of serial PSA results should be interpreted with this fact in mind. This test was performed using the Siemens chemiluminescent method. Values obtained from different assay methods cannot be used interchangeably. PSA levels, regardless of value, should not be interpreted as absolute evidence of the presence or absence of disease. Test Performed at: [facility] [address] [place] [address] Hardeep Valles MD Blood 10/27/2024 12:5 3 PM CDT 10/28/2024 3:45 AM CDT Fortino Orellana MD CHEMISTRY ORDERABLES Laina l Result [facility] [phone] [facility] [address] [place] [address] * LIPID PANEL (10/27/2024 12:53 PM CDT) CHOLESTEROL 155 <200 mg/dL [facility] HDL 43 > OR = 40 mg/dL [facility] TRIGLYCERIDE 65 <150 mg/dL [facility] LDL CALCULATED 97 mg/dL (calc) [facility] Comment: Reference range: <100 Desirable range <100 mg/dL for primary prevention; <70 mg/dL for patients with CHD or diabetic patients with > or = 2 CHD risk factors. LDL-C is now calculated using the Junito calculation, which is a validated novel method providing better accuracy than the Friedewald equation in the estimation of LDL-C. David WING et al. FREDY. 2013;310(19): 8730-2497 (http://education.Veysoft/faq/YHN070) CHOL/HDL RATIO 3.6 <5.0 (calc) [facility] NON-HDL CHOLESTEROL 112 <130 mg/dL (calc) [facility] Comment: For patients with diabetes plus 1 major ASCVD risk factor, treating to a non-HDL-C goal of <100 mg/dL (LDL-C of <70 mg/dL) is considered a therapeutic option. Test Performed at: [facility] [address] [place] [address] Hardeep Valles MD Blood 10/27/2024 12:5 3 PM CDT 10/28/2024 3:45 AM CDT Fortino Orellana MD CHEMISTRY ORDERABLES [facility] l Result [facility] [phone] [facility] [address] [place] [address] * COMPREHENSIVE METABOLIC PANEL (10/27/2024 12:53 PM CDT) Pathologist [facility] GLUCOSE 85 65 - 99 mg/dL [facility] Comment: Fasting reference interval BUN 11 7 - 25 mg/dL [facility] CREATININE 0.90 0.70 - 1.35 mg/dL [facility] GFR 94 > OR = 60 mL/min/1. 73m2 [facility] BUN/CREAT RATIO SEE NOTE: 6 - 22 (calc) [facility] Comment: Not Reported: BUN and Creatinine are within reference range. SODIUM 137 135 - 146 mmol/L [facility] POTASSIUM 4.1 3.5 - 5.3 mmol/L [facility] CHLORIDE 104 98 - 110 mmol/L [facility] CO2 26 20 - 32 mmol/L [facility] CALCIUM 9.7 8.6 - 10.3 mg/dL [facility] TOTAL PROTEIN 7.4 6.1 - 8.1 g/dL [facility] ALBUMIN 4.7 3.6 - 5.1 g/dL [facility] GLOBULIN 2.7 1.9 - 3.7 g/dL (calc) [facility] ALBUMIN/GLOBULIN RATIO 1.7 1.0 - 2.5 (calc) [facility] BILIRUBIN TOTAL 0.6 0.2 - 1.2 mg/dL [facility] ALKALINE PHOSPHATASE 124 35 - 144 U/L [facility] AST 17 10 - 35 U/L [facility] ALT 22 9 - 46 U/L [facility] Comment: Test Performed at: [facility] [address] Hardeep Valles MD Blood 10/27/2024 12:5 3 PM CDT 10/28/2024 3:45 AM CDT Fortino Orellana MD CHEMISTRY ORDERABLES Laina l Result [facility] [phone] [facility] [address] * COLON CANCER SCREEN, STOOL DNA (12/18/2022 12:45 PM CDT) COLOGUARD RESULT Negative Negative [facility] Comment: NEGATIVE TEST RESULT. A negative Cologuard result indicates a low likelihood that a colorectal cancer (CRC) or advanced adenoma (adenomatous polyps with more advanced pre-malignant features) is present. The chance that a person with a negative Cologuard test has a colorectal cancer is less than 1 in 1500 (negative predictive value >99.9%) or has an advanced adenoma is less than 5.3% (negative predictive value 94.7%). These data are based on a prospective cross-sectional study of 10,000 individuals at average risk for colorectal cancer who were screened with both Cologuard and colonoscopy. (Nidhi Livingston al, N Engl J Med 2014;370(14):2212-3459) The normal value (reference range) for this assay is negative. COLOGUARD RE-SCREENING RECOMMENDATION: Periodic colorectal cancer screening is an important part of preventive healthcare for asymptomatic individuals at average risk for colorectal cancer. Following a negative Cologuard result, the [place] [employer] Society and U.S. Multi-Society Task Force screening guidelines recommend a Cologuard re-screening interval of 3 years. References: [place] [employer] Guideline for Colorectal Cancer Screening: https://www.cancer.org/cancer/eznbn-yoawvb-twpfxq/oxpfynhuh-vaotwtrsk-ehcwuho/ac s-rec ommendations.html.; Graham DK, Ajit CR, Quinn GhotraK, Colorectal Cancer Screening: Recommendations for Physicians and Patients from the U.S. Multi-Society Task Force on Colorectal Cancer Screening , Am J Gastroenterology 2017; 112:3655-7908. TEST DESCRIPTION: Composite algorithmic analysis of stool DNA-biomarkers with hemoglobin immunoassay. Quantitative values of individual biomarkers are not reportable and are not associated with individual biomarker result reference ranges. Cologuard is intended for colorectal cancer screening of adults of either sex, 45 years or older, who are at average-risk for colorectal cancer (CRC). Cologuard has been approved for use by the U.S. FDA. The performance of Cologuard was established in a cross sectional study of average-risk adults aged 50-84. Cologuard performance in patients ages 45 to 49 years was estimated by sub-group analysis of near-age groups. Colonoscopies performed for a positive result may find as the most clinically significant lesion: colorectal cancer [4.0%], advanced adenoma (including sessile serrated polyps greater than or equal to 1cm diameter) [20%] or non- advanced adenoma [31%]; or no colorectal neoplasia [45%]. These estimates are derived from a prospective cross-sectional screening study of 10,000 individuals at average risk for colorectal cancer who were screened with both Cologuard and colonoscopy. (Nidhi Livingston al, N Engl J Med 2014;370(14):9266-5929.) Cologuard may produce a false negative or false positive result (no colorectal cancer or precancerous polyp present at colonoscopy follow up). A negative Cologuard test result does not guarantee the absence of CRC or advanced adenoma (pre-cancer). The current Cologuard screening interval is every 3 years. ([place] [employer] Society and U.S. Multi-Society Task Force). Cologuard performance data in a 10,000 patient pivotal study using colonoscopy as the reference method can be accessed at the following location: www.HITbills.PharmMD/results. Additional description of the Cologuard test process, warnings and precautions can be found at www.Wisairrd.PharmMD. Stool STOOL SPECIMEN / Unknown 12/18/2022 12:45 PM CDT 12/19/2022 4:51 PM CDT Fortino Orellana MD BODY FLUIDS AND STOOLS Fi nal Result Performing Organization Address City/State/[facility] Co de Phone Number [facility] CLIA # [id number] [address] [facility], [address] [place] [address] from Last 3 Months or Most Recently Relevant to Health Maintenance Insurance MEDICARE PART A AND B [facility] [id number] Care Teams Fan Mail Clerk Relationship Specialty Start Date End Date Fortino Orellana MD [address] [phone] PCP - General Family Practice 11/01/21
--- OUTSIDE RECORDS SUMMARY | 2025-01-12 05:05 | XMS_ITS | Clinical Summary ---
Author Organization [facility] Address [address] [place] [address] Care Team Providers Care Video Coordinator Name Role Phone Zarina Honeycutt Dionna AIRCONDITIONING ENGINEER Primary Care Provider Allergies No known active allergies Medications diclofenac sodium (VOLTAREN) 75 mg Oral TbEC Take 1 Tab by mouth 2 times daily. After breakfast and supper 60 Tab 2 2 Active cyclobenzaprine (FLEXERIL) 10 mg Oral tablet Take 1 Tab by mouth daily at bedtime. 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 Gender Identity Not on file Sexual Orientation Not on file Last Filed Vital Signs Vital Sign Reading Time Taken Comments Blood Pressure 200/100 02/08/2014 3:49 PM CHILDHOOD TEACHER Pulse 83 02/08/2014 3:49 PM CHILDHOOD TEACHER Temperature 36.8 C (98.2 F) 02/08/2014 3:49 PM CHILDHOOD TEACHER Respiratory Rate 20 02/08/2014 3:49 PM CHILDHOOD TEACHER Oxygen Saturation 98% 02/08/2014 3:49 PM CHILDHOOD TEACHER Inhaled Oxygen Concentration - - Weight 110.7 kg (244 lb) 02/08/2014 3:49 PM CHILDHOOD TEACHER Height 185.4 cm (6' 1 ) 02/08/2014 3:49 PM CHILDHOOD TEACHER Body Mass Index 32.19 02/08/2014 3:49 PM CHILDHOOD TEACHER Plan of Treatment Health Maintenance Due Date Last Done Comments Pre-Diabetes and Diabetes Screening 1955 DTAP/TDAP/TD VACCINES (1 - Tdap) 1976 COLORECTAL SCREENING 2002 Colorectal Cancer Screening 2002 FIT-DNA Q 3 years 2002 FIT/FOBT Q 1 year 2002 Flex Sig/CT Colonography Q 5 years 2002 PNEUMOCOCCAL VACCINE 50+ YEARS (1 of 1 - PCV) 08/13/19 08 ZOSTER VACCINE (1 of 2) 08/13/2007 Preventative Visit- Commercial 03/03/2024 INFLUENZA VACCINE (#1) 2024 RSV VACCINE (60+ or ) (1 - 1-dose 75+ series) 2032 Insurance [employer] BLUE Ex[employer] PATHWAY(X) EXCHANGE Care Teams Video Coordinator Relationship Specialty Start Date End Date Zarina Honeycutt FNP [address] [place] [phone] PCP - General Nurse Practitioner Family 09/24/19
[2025-01-12 05:33] VITALS: BP 126/61; PULSE 68; O2SAT 94
[2025-01-12 05:41] LABS: Glucose Urine UA Negative (Normal); Nitrate Urine Negative (Negative); Specific Gravity, Urine 1.011 (1.005-1.030)
[2025-01-12 05:46] LABS: Add Urine Microscopic? YES
--- NOTE | 2025-01-12 05:48 | ED_ITS ---
HPI - Male Genitourinary General: Chief complaint: Urogenital-Male Stated complaint: Cant Pee Back Pain Time Seen by Provider: 01/12/25 05:27 History of Present Illness: Patient is a 69-year-old male with a history of high blood pressure, enlarged prostate and history of urinary retention presents with a chief complaint of inability to urinate since 10 PM yesterday evening. He has not been ill prior to this. He denies fever, chills, malaise, weakness or muscle cramps. He denie s chest pain, shortness of breath. Patient states that when he came in he had significant suprapubic discomfort and low back discomfort but that has been completely relieved with the placement of a Brito catheter. At this time, patient is comfortable. Patient states he continues to take tamsulosin. Related Data Home Medications ?Medication ?Instructions ?Recorded ?Confirmed aspirin 81 mg chewable tablet 81 mg PO DAILY 09/05/19 09/21/19 lisinopril 20 1 tab PO DAILY 09/05/1909/01 mg-hydrochlorothiazide 25 mg tablet tamsulosin 0.4 mg capsule 0.8 mg PO DAILY 09/21/19 Allergies Allergy/AdvReac Type Severity Reaction Status Date / Time No Known Allergies Allergy Verified 09/07/19 13:01 [facility] ED [facility]: Medical History (Updated 01/12/25 @ 05:53 by Vida Mcrae MD) BPH NOS w ur obs/LUTS Acute retention of urine BPH (benign prostatic hyperplasia) Hypertension Nephrolithiasis Surgical History History of total right hip arthroplasty History of appendectomy Family History Mother Alzheimer disease Father , at age 79 Cancer Social History Smoking and tobacco/nicotine status: current every day tobacco/nicotine user smokeless tobacco Alcohol intake: never Substance/Drug Use: never Marital status: Physical Exam Narrative: EXAM NARRATIVE: Vital signs were reviewed. Patient is alert and oriented. Patient is breathing comfortably, no increased WOB or accessory muscle use. SpO2 is above 95% on RA. Patient has clear lungs b/l, no rhonchi, wheezing or crackles. No hypotension or tachycardia. Abdomen is soft, nondistended and nontender no CVA tenderness with percussion of the flanks. Patient is moving all extremities, no deformity or gross injury. No lower extremity edema or asymmetry. Course Vital Signs: Vital signs: Vital Signs Temperature 97.5 F L 01/12/25 04:57 Pulse Rate 68 01/12/25 05:33 Respiratory Rate 20 H 01/12/25 04:57 Blood Pressure 126/61 01/12/25 05:33 Pulse Oximetry 94 01/12/25 05:33 Oxygen Delivery Me thod Room Air 01/12/25 05:03 MDM - Male Medical Decision Making 69-year-old male with a chief complaint of difficulty urinating since yesterday evening. He states that 4 years ago, he had similar episode and needed a placement of a Brito catheter. Differential diagnosis includes, but is not limited to, urinary tract infection, pyelonephritis, obstructive uropathy, urinary retention, other. On exam, patient is helically stable nontoxic- appearing. Patient has 1100cc of output from placement of FC catheter and complete resolution of symptoms. UA does not show infection or hematuria. At this time, patient is comfortable, appropriate for outpatient follow-up. Will place consult for case management to help with urology follow-up. Patient was counseled on supportive care at home, given return precautions and discharged in stable condition with recommendation for outpatient follow-up with primary care nurse or doctor. Lab Data Laboratory Results Urine Color Yellow (Yellow) 01/12/25 05:30 Urine Appearance Clear (CLEAR) 01/12/25 05:30 Urine pH 6.5 (5-7) 01/12/25 05:30 Ur Specific [place] 1.011 (1.005-1.030) 01/12/25 05:30 Urine Protein Negative (Negative) 01/12/25 05:30 Urine Glucose (UA) Negative (Normal) 01/12/25 05:30 Urine Ketones Negative (Negative) 01/12/25 05:30 Urine Blood 1+ (Negative) A 01/12/25 05:30 Urine Nitrate Negative (Negative) 01/12/25 05:30 Urine Bilirubin Negative (Negative) 01/12/25 05:30 Urine Urobilinogen 0.2 mg/dL (Negative) 01/12/25 05:30 Ur Leukocyte Esterase Negative (Negative) 01/12/25 05:30 Urine RBC 0-2 /hpf (0-2) 01/12/25 05:30 Urine WBC 0-5 /hpf (0-5) 01/12/25 05:30 Ur Squamous Epith Cells 0-5 /hpf (0-5) 01/12/25 05:30 Urine Bacteria None seen /hpf (NONE) 01/12/25 05:30 Hyaline Casts 0-4 /lpf H 01/12/25 05:30 No radiology studies performed this visit Discharge Plan Discharge Patient Disposition: Home Clinical Impression: Acute urinary retention Condition: Stable Prescriptions: No Action tamsulosin 0.4 mg capsule 0.8 mg PO DAILY Rx Instructions: Pt taking one in AM and one in PM. Equal to 0.8mg per day lisinopril-hydrochlorothiazide 20-25 mg tablet 1 tab PO DAILY aspirin 81 mg Tablet,Chewable 81 mg PO DAILY Discharge Orders: Discharge ED (Routine); Ordered 01/12/25 Ordered By: Vida Mcrae Referrals: Fortino Orellana [Primary Care Provider, Family Practice] Patient Instructions: Opioid Safety, Pain Management, Patient Portal & [place] Instructions, Urinary Retention in Men (ED), Brito Catheter Care, Brito Catheter Placement and Care (ED) Activity Restrictions/Additional Instructions: Please make an appointment with your primary care physician today or tomorrow to check your kidney function and electrolytes. Continue to monitor your condition closely at home. If your condition worsens or additional concerns arise, please return to the emergency department for reassessment. Please follow-up with a urologist within 1 week. Print Language: Welsh Coding Level of Care Code ED Computer Security Coordinator for Maite Carson
[2025-01-12 06:09] VITALS: BP 116/59; PULSE 75; O2SAT 96
--- NOTE | 2025-01-13 10:29 | DCPLANNER ---
faxed outpatient referral to [facility] urology - no images to push.
== END 2025-01-12 06:10 | disposition home or self-care (01) ==
PROVIDERS: Emergency Provider Emergency Medicine; PCP Family Medicine
DX: R33.8 Other retention of urine (principal); Z79.82 Long term (current) use of aspirin; F17.290 Nicotine dependence, other tobacco product, uncomplicated; I10 Essential (primary) hypertension
CPT/HCPCS: 81001; 99283